=== PATIENT | male | born 1965 | race Two or more races ===

== ENCOUNTER 2022-04-04 04:08 | Emergency (ER) | payer OTHER ==
[~2022-04-04] VITALS: Ht 175.3 cm; Wt 113.4 kg
[2022-04-04] MEDS ORDERED: AMIODARONE HCL100 MG PO (04:14)
[2022-04-04] MEDS ORDERED: ELIQUIS5 MG PO (04:14)
== END 2022-04-04 06:47 | disposition home or self-care (01) ==
LOC: ER 04:08
DX: J44.1 Chronic obstructive pulmonary disease with (acute) exacerbation (principal); I48.91 Unspecified atrial fibrillation; Z79.01 Long term (current) use of anticoagulants; Z95.0 Presence of cardiac pacemaker; I10 Essential (primary) hypertension